=== PATIENT | male | born 1975 | race Caucasian/White ===

== ENCOUNTER 2019-01-25 15:43 | Inpatient (IN) | payer OTHER ==
[2019-01-25 19:32] VITALS: BMI 19.9
--- NOTE | 2019-01-25 21:06 | HP ---
COWS - Scale Resting Pulse: 0= [place] 80 or Below Sweatin=Flushed/Facial Moisture Restless Observation: 1= Difficult to Sit Still Pupil Size: 0= Normal to Room Light Bone or Joint Aches: 0= None Runny Nose/ Eye Tearin= Runny Nose/Eyes GI Upset > 30mins: 3= Vomiting/Diarrhea Tremor Observation: 0= None Yawning Observation: 1= 1-2x During Session Anxiety or Irritability: 2=Irritable/Anxious Goose Flesh Skin: 0=Smooth Skin COWS Score: 11 CIWA Score Nausea/Vomitin Muscle Tremors: 1-None Visible, but [place] Anxiety: 3 Agitation: 3 Paroxysmal Sweats: 3 Orientation: 0-Oriented Tacttile Disturbances: 0-None Auditory Disturbances: 0-None Visual Disturbances: 2-Mild Sensitivity Headache: 0-None Present CIWA-Ar Total Score: 15 - Admission Criteria OASAS Guidelines: Admission for Medically Managed Detox: Requires at least one of the followin. CIWA greater than 12 2. Seizures within the past 24 hours 3. Delirium tremens within the past 24 hours 4. Hallucinations within the past 24 hours 5. Acute intervention needed for co occurring medical disorder 6. Acute intervention needed for co occurring psychiatric disorder 7. Severe withdrawal that cannot be handled at a lower level of care (continued vomiting, continued diarrhea, abnormal vital signs) requiring intravenous medication and/or fluids 8. Patient presents the following: CIWA greater than 12 Admission Criteria Met: Admission criteria met Admission ROS [facility] Chief Complaint: C/O WITHDRAWAL SX'S. Allergies/Adverse Reactions: Allergies Allergy/AdvReac Type Severity Reaction Status Date / Time No Known Allergies Allergy Verified 01/25/19 19:25 History of Present Illness: 43 Y.O. FEMALE WITH HX/O POLYSUBSTANCE ABUSE HERE FOR DETOX FROM OPIATES AND ALCOHOL. CLIENT IS SELF REFERRED HE IS KNOWN TO THIS PROGRAM. LAST ADMIT 2015. REPORTS WAS CLEAN FOR 2 YEARS RELAPSING 5 MONTHS AGO. PRESENTS WITH C/O WITHDRAWAL SX'S. COWS 11/CIWA 15. REPORTS LAST USED ALCOHOL AND HEROIN THIS MORNING. DENIES HX/O DRUG OVERDOSE, SEIZURES, SI/HI/AVH. DOMICILED, UNEMPLOYED, DENIES LEGALS Exam Limitations: Physical Impairment (LEGALLY BLIND) - Ebola screening Have you traveled outside of the country in the last 21 days: No Have you had contact with anyone from an Ebola affected area: No Do you have a fever: No - Review of Systems Constitutional: Chills, Loss of Appetite, Malaise, Night Sweats, Changes in sleep EENT: reports: Other (LEGALLY BLIND) Respiratory: reports: No Symptoms reported Cardiac: reports: No Symptoms Reported GI: reports: Diarrhea, Nausea, Poor Appetite, Poor Fluid Intake, Vomiting : reports: No Symptoms Reported Musculoskeletal: reports: Back Pain Integumentary: reports: Flushing Neuro: reports: No Symptoms reported Endocrine: reports: No Symptoms Reported Hematology: reports: No Symptoms Reported Psychiatric: reports: Orientated x3, Agitated (IRRITABLE), Depressed Other Systems: Reviewed and Negative Patient History - Patient Medical History Hx Anemia: No Hx Asthma: No Hx Chronic Obstructive Pulmonary Disease (COPD): No Hx Cancer: No Hx Cardiac Disorders: No Hx Congestive Heart Failure: No Hx Hypertension: No Hx Hypercholesterolemia: No Hx Pacemaker: No Hx Seizures: No Hx Dementia: No Hx Diabetes: No Hx Gastrointestinal Disorders: No Hx Liver Disease: No Hx Genitourinary Disorders: No Hx Sexually Transmitted Disorders: No Hx Renal Disease (ESRD): No Hx Thyroid Disease: No Hx Human Immunodeficiency Virus (HIV): No Hx Hepatitis C: Yes (NO TXMENT) Hx Depression: No Hx Suicide Attempt: No Hx Bipolar Disorder: No Hx Schizophrenia: No - Patient Surgical History Past Surgical History: Yes Hx Neurologic Surgery: No Hx Cataract Extraction: No Hx Cardiac Surgery: No Hx Lung Surgery: No Hx Breast Surgery: No Hx Breast Biopsy: No Hx Abdominal Surgery: No Hx Appendectomy: No Hx Cholecystectomy: No Hx Genitourinary Surgery: No Hx Section: No Hx Orthopedic Surgery: No Other Surgical History: Umbillical hernia repair 07/12 Anesthesia Reaction: No - PPD History Previous Implant?: Yes Documented Results: Negative w/proof Implanted On Prior R Admission?: Yes Date: 04/13/16 Results: negative PPD to be Administered?: Yes - Smoking Cessation Smoking history: Current every day smoker Have you smoked in the past 12 months: Yes Aproximately how many cigarettes per day: 10 Cigars Per Day: 0 Hx Chewing Tobacco Use: No Initiated information on smoking cessation: Yes 'Breaking Loose' booklet given: 01/25/19 - Substance & Tx. History Hx Alcohol Use: Yes Hx Substance Use: Yes Substance Use Type: Alcohol, Cocaine, Heroin, Opiates (STREET MTD) Hx Substance Use Treatment: Yes ([facility]) - Substances abused Heroin Substance route: Injection Frequency: Daily Amount used: 5-6 bags/daily Age of first use: 22 Date of last use: 01/25/19 Cocaine Substance route: Injection Frequency: Daily Amount used: 5-6 bags/daily Age of first use: 29 Date of last use: 01/25/19 Alcohol Substance route: Oral Frequency: Daily Amount used: 6 beers, 1/2 pint Age of first use: 29 Date of last use: 01/25/19 Other Other (specify): Percocet Substance route: Oral Frequency: Daily Amount used: 5-6 pills (10 - 325mg) Age of first use: 29 Date of last use: 01/25/19 Family Disease History - Family Disease History Family Disease History: Diabetes: Mother, Heart Disease: Father (htn), Other: Grandparent (schizophrenia), Sister (lupus) Admission Physical Exam [facility] - Vital Signs Vital Signs: Vital Signs - 24 hr 01/25/19 19:25 Temperature 97.9 F Pulse Rate 64 Respiratory 20 Rate Blood Pressure 114/73 - Physical General Appearance: Yes: Mild Distress, Irritable HEENTM: Yes: EOMI, Normocephalic, Normal Voice, Pharynx Normal, Other (POOR DENTTION) Respiratory: Yes: Chest Non-Tender, Lungs Clear, Normal Breath Sounds, No Respiratory Distress, No Accessory Muscle Use Neck: Yes: No masses,lesions,Nodules, Supple, Trachea in good position Breast: Yes: Breast Exam Deferred Cardiology: Yes: Regular Rhythm, Regular Rate, S1, S2 Abdominal: Yes: Normal Bowel Sounds, Non Tender, Flat, Soft Genitourinary: Yes: Within Normal Limits Back: Yes: Normal Inspection Musculoskeletal: Yes: full range of Motion, Gait Steady Extremities: Yes: Normal Capillary Refill, Normal Range of Motion, Non-Tender Neurological: Yes: Fully Oriented, Alert, Motor Strength 5/5, Depressed Affect Integumentary: Yes: Dry, Warm, Track [place] Lymphatic: Yes: Within Normal Limits - Diagnostic (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 (2) Cocaine abuse, uncomplicated Current Visit: Yes Status: Acute (3) At risk for dehydration due to poor fluid intake Current Visit: Yes Status: Acute (4) Nicotine dependence Current Visit: Yes Status: Chronic Qualifiers: Nicotine product type: cigarettes Substance use status: uncomplicated Qualified Code(s): F17.210 - Nicotine dependence, cigarettes, uncomplicated (5) Substance-induced sleep disorder Current Visit: Yes Status: Suspected (6) Alcohol dependence with uncomplicated withdrawal Current Visit: Yes Status: Acute (7) Hepatitis C antibody test positive Current Visit: Yes Status: Chronic (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 (9) IVDU (intravenous drug user) Current Visit: Yes Status: Acute Cleared for Admission S - Detox or Rehab [facility] Level of Care: Medically Managed Detox Regimen/Protocol: Methadone/Librium Claeared for Rehab Admission: No Breathalyzer - Breathalyzer Breathalyzer: 0 Urine Drug Screen - Test Device Lot number: [id number] Expiration date: 10/06/20 - Control Is test valid?: Yes - Results Drug screen NEGATIVE: No Urine drug screen results: ANA-Cocaine, FEN-Fentanyl, MOP-Opiates, MTD-Methadone , BZO-Benzodiazepines Inpatient Rehab Admission - Rehab Decision to Admit Inpatient rehab admission?: No
[2019-01-25] MEDS ORDERED: BISMUTH SUBSALICYLATE 524 MG/30 ML UD PO PRN (21:13)
[2019-01-25] MEDS ORDERED: P-EPHED 60MG/TRIPROLIDI 2.5MG TABLET PO PRN (21:13)
[2019-01-25] MEDS ORDERED: IBUPROFEN 400 MG TABLET (FP) PO PRN (21:13)
[2019-01-25] MEDS ORDERED: MENTHOL/PHENOL 1 EACH UD MM PRN (21:13)
[2019-01-25] MEDS ORDERED: cloNIDine HCL 0.1 MG TABLET PO PRN (21:13)
[2019-01-25] MEDS ORDERED: NICOTINE POLACRILEX 2 MG GUM BUC PRN (21:13)
[2019-01-25] MEDS ORDERED: MAGNESIUM HYDROX 2400MG/30ML ORAL SUSPENSION 30 ML CUP PO PRN (21:13)
[2019-01-25] MEDS ORDERED: hydrOXYzine PAMOATE 25 MG CAPSULE (FP) PO PRN (21:13)
[2019-01-25] MEDS ORDERED: MAG HYDROX/AL HYDROX/SIMETH 30 ML UNIT-DOSE CUP PO PRN (21:13)
[2019-01-25] MEDS ORDERED: ACETAMINOPHEN 325 MG TABLET (FP) PO PRN ×2 (21:13)
[2019-01-25] MEDS ORDERED: DICYCLOMINE HCL 10 MG CAPSULE PO PRN (21:13)
[2019-01-25] MEDS ORDERED: MAGNESIUM CITRATE 300 ML BOTTLE PO PRN (21:13)
[2019-01-25] MEDS ORDERED: guaiFENesin 200 MG/10 ML 10 ML UNIT-DOSE CUPS PO PRN (21:13)
[2019-01-25] MEDS ORDERED: NALOXONE HCL 0.4 MG/ML VIAL IVPUSH PRN (21:13)
[2019-01-25] MEDS ORDERED: ONDANSETRON *ODT* 4 MG TABLET SL PRN (21:13)
[2019-01-25] MEDS: THIAMINE HCL 100 MG TABLET (FP) PO SCH (22:33)
[2019-01-25] MEDS: chlordiazePOXIDE HCL 25 MG CAPSULE PO SCH (22:33)
[2019-01-25] MEDS ORDERED: METHADONE HCL 10 MG TABLET (FOR DETOX USE ONLY) PO ONE (23:00)
[2019-01-26] MEDS: chlordiazePOXIDE HCL 25 MG CAPSULE PO SCH ×4 (05:16→22:26)
[2019-01-26 09:46] LABS: HEMATOCRIT 40.6 % (35.4-49); HEMOGLOBIN 13.9 GM/dL (11.7-16.9); MCH 32.3 pg (25.7-33.7); MCHC 34.3 g/dl (32.0-35.9); MEAN CELL VOLUME 94.2 fl (80-96); MEAN PLT VOLUME 8.3 fl (7.5-11.1); PLATELET COUNT 181 K/MM3 (134-434); RBC 4.31 M/mm3 (4.00-5.60); RDW 12.6 % (11.9-15.9); WHITE BLOOD COUNT 5.9 K/mm3 (4.0-10.0)
[2019-01-26 09:58] LABS: ALBUMIN 3.2 g/dl (3.4-5.0); BILIRUBIN,TOTAL 0.3 mg/dL (0.2-1); BLOOD UREA NITROGEN 13.7 mg/dL (7-18); CALCIUM 8.4 mg/dL (8.5-10.1); CREATININE 0.9 mg/dL (0.55-1.3); POTASSIUM 3.8 mmol/L (3.5-5.1); TOT PROT 6.4 g/dl (6.4-8.2)
[2019-01-26] MEDS ORDERED: METHADONE HCL 10 MG TABLET (FOR DETOX USE ONLY) PO ONE (10:00)
[2019-01-26] MEDS: PRENATAL VITAMINS W/ FOLIC ACID TABLET (FP) PO SCH (10:21)
[2019-01-26] MEDS: NICOTINE 14 MG/24 HOURS TOPICAL PATCH TD SCH (10:23)
--- NOTE | 2019-01-26 12:00 | PN ---
S CIWA - CIWA Score Nausea/Vomitin Muscle Tremors: 2 Anxiety: 2 Agitation: 2 Paroxysmal Sweats: 1-Minimal Palms Moist Orientation: 0-Oriented Tacttile Disturbances: 1-Very Mild Itch/Numbness Auditory Disturbances: 1-Very Mild Visual Disturbances: 0-None Headache: 2-Mild CIWA-Ar Total Score: 13 BHS COWS - Scale Resting Pulse: 0= [place] 80 or Below Sweatin= Chills/Flushing Restless Observation: 1= Difficult to Sit Still Pupil Size: 1= Pupils >than Normal Bone or Joint Aches: 2= Severe Diffuse Aches Runny Nose/ Eye Tearin= Nasal Congestion GI Upset > 30mins: 2= Nausea/Diarrhea Tremor Observation of Outstretched Hands: 2= Slight Tremor Visible Yawning Observation: 1= 1-2x During Session Anxiety or Irritability: 2=Irritable/Anxious Goose Flesh Skin: 0=Smooth Skin COWS Score: 13 BHS Progress Note (SOAP) Subjective: alert,irritable,anxious,interrupted sleep,pain in the body and back tremor Objective: 01/26/19 11:58 Vital Signs Temperature 97.8 F 01/26/19 09:24 Pulse Rate 71 01/26/19 09:24 Respiratory Rate 18 01/26/19 09:24 Blood Pressure 108/65 01/26/19 09:24 O2 Sat by Pulse Oximetry (%) Laboratory Last Values WBC 5.9 K/mm3 (4.0-10.0) 01/26/19 07:30 RBC 4.31 M/mm3 (4.00-5.60) 01/26/19 07:30 Hgb 13.9 GM/dL (11.7-16.9) 01/26/19 07:30 Hct 40.6 % (35.4-49) 01/26/19 07:30 MCV 94.2 fl (80-96) 01/26/19 07:30 MCH 32.3 pg (25.7-33.7) 01/26/19 07:30 MCHC 34.3 g/dl (32.0-35.9) 01/26/19 07:30 RDW 12.6 % (11.9-15.9) 01/26/19 07:30 Plt Count 181 K/MM3 (134-434) D 01/26/19 07:30 MPV 8.3 fl (7.5-11.1) 01/26/19 07:30 Sodium 142 mmol/L (136-145) 01/26/19 07:30 Potassium 3.8 mmol/L (3.5-5.1) 01/26/19 07:30 Chloride 108 mmol/L (98-107) H 01/26/19 07:30 Carbon Dioxide 29 mmol/L (21-32) 01/26/19 07:30 Anion Gap 5 MMOL/L (8-16) L 01/26/19 07:30 BUN 13.7 mg/dL (7-18) 01/26/19 07:30 Creatinine 0.9 mg/dL (0.55-1.3) 01/26/19 07:30 Est GFR (CKD-EPI)AfAm 119.97 01/26/19 07:30 Est GFR (CKD-EPI)NonAf 103.51 01/26/19 07:30 Random Glucose 81 mg/dL (74-106) 01/26/19 07:30 Calcium 8.4 mg/dL (8.5-10.1) L 01/26/19 07:30 Total Bilirubin 0.3 mg/dL (0.2-1) 01/26/19 07:30 AST 15 U/L (15-37) 01/26/19 07:30 ALT 13 U/L (13-61) 01/26/19 07:30 Alkaline Phosphatase 65 U/L (45-117) 01/26/19 07:30 Total Protein 6.4 g/dl (6.4-8.2) 01/26/19 07:30 Albumin 3.2 g/dl (3.4-5.0) L 01/26/19 07:30 RPR Titer Nonreactive (NONREACTIVE) 01/26/19 07:30 Assessment: 01/26/19 11:59 withdrawal symptom Plan: continue detox,medication adjust
--- NOTE | 2019-01-26 14:44 | CONSULT ---
[facility] Psychiatric Consult - Data Date of interview: 01/26/19 Admission source: [facility] Identifying data: Patient is a 43 year old single male, without children, unemployed, domiciled, and is supported by [facility]. This is one of multiple admissions for patient. Patient admitted to for alcohol, cocaine and opiate dependence. Substance Abuse History: - Smoking Cessation. Smoking history: Current every day smoker. Have you smoked in the past 12 months: Yes. Aproximately how many cigarettes per day: 10. Cigars Per Day: 0. Hx Chewing Tobacco Use: No. Initiated information on smoking cessation: Yes. 'Breaking Loose' booklet given : 01/25/19. - Substance & Tx. History. Hx Alcohol Use: Yes. Hx Substance Use : Yes. Substance Use Type: Alcohol, Cocaine, Heroin, Opiates (STREET MTD). Hx Substance Use Treatment: Yes ([facility]). - Substances abused. Heroin. Substance route: Injection. Frequency: Daily. Amount used: 5-6 bags/daily. Age of first use: 22. Date of last use: 01/25/19. Cocaine. Substance route : Injection. Frequency: Daily. Amount used: 5-6 bags/daily. Age of first use : 29. Date of last use: 01/25/19. Alcohol. Substance route: Oral. Frequency: Daily. Amount used: 6 beers, 1/2 pint. Age of first use: 29. Date of last use: 01/25/19. Other. Other (specify): Percocet. Substance route: Oral. Frequency: Daily. Amount used: 5-6 pills (10 - 325mg). Age of first use : 29. Date of last use: 01/25/19 Medical History: Umbillical hernia repair 07/12, Hep C, Psychiatric History: Patient denies h/o psychiatric hospitalizations, outpatient care, and suicide attempt. At present patient reports difficulty sleeping and is requesting seroquel for insomnia. Physical/Sexual Abuse/Trauma History: denies. Mental Status Exam - Mental Status Exam Alert and Oriented to: Time, Place, Person Cognitive Function: Good Patient Appearance: Well Groomed Mood: Euthymic Affect: Appropriate Patient Behavior: Cooperative Speech Pattern: Appropriate Voice Loudness: Moderately Soft/Quiet Thought Process: Goal Oriented Thought Disorder: Not Present Hallucinations: Denies Suicidal Ideation: Denies Homicidal Ideation: Denies Insight/Judgement: Poor Sleep: Poorly Appetite: Fair Muscle strength/Tone: Normal Gait/Station: Normal Psychiatric Findings - Problem List ([place] 1, 2,3) (1) Alcohol dependence with uncomplicated withdrawal Current Visit: Yes Status: Acute (2) Cocaine abuse, uncomplicated Current Visit: Yes Status: Acute (3) Nicotine dependence Current Visit: Yes Status: Chronic Qualifiers: Nicotine product type: cigarettes Substance use status: uncomplicated Qualified Code(s): F17.210 - Nicotine dependence, cigarettes, uncomplicated (4) Substance-induced sleep disorder Current Visit: Yes Status: Acute - Initial Treatment Plan Initial Treatment Plan: Psychoeducation provided. Detoxification in progress. Will order Seroquel 50mg HS. Benefits and side effects discussed. Verbal consent given.
[2019-01-26 15:19] LABS: URINE APPEARANCE TURBID; URINE BILIRUBIN NEGATIVE (NEGATIVE); URINE COLOR YELLOW; URINE GLUCOSE (UA) NEGATIVE (NEGATIVE); URINE KETONE NEGATIVE (NEGATIVE); URINE LEUK ESTERASE NEGATIVE (NEGATIVE); URINE NITRITE NEGATIVE (NEGATIVE); URINE PROTEIN NEGATIVE (NEGATIVE)
[2019-01-26] MEDS ORDERED: QUEtiapine FUMARATE 50 MG TABLET PO SCH (22:00)
[2019-01-26] MEDS: THIAMINE HCL 100 MG TABLET (FP) PO SCH (22:26)
[2019-01-26] MEDS: MELATONIN 5 MG TABLETS PO PRN (22:28)
[2019-01-26] MEDS: METHOCARBAMOL 500 MG TABLET PO PRN (22:28)
[2019-01-27] MEDS: chlordiazePOXIDE HCL 25 MG CAPSULE PO SCH ×3 (05:20→17:10)
[2019-01-27] MEDS ORDERED: METHADONE HCL 10 MG TABLET (FOR DETOX USE ONLY) PO ONE (10:00)
[2019-01-27] MEDS: PRENATAL VITAMINS W/ FOLIC ACID TABLET (FP) PO SCH (10:08)
[2019-01-27] MEDS: METHOCARBAMOL 500 MG TABLET PO PRN ×2 (10:09→22:17)
[2019-01-27] MEDS: NICOTINE 14 MG/24 HOURS TOPICAL PATCH TD SCH (10:09)
--- NOTE | 2019-01-27 11:27 | PN ---
LINDA Progress Note Note: Psychiatry Attending's note (follow-up) : Approached by patient. Complaint : insomnia. " I need more seroquel ". Chart reviewed. Records revisited. 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 Intervention : . Sleep hygiene discussed in this session. . Seroquel 100 mg po hs. Ordered. . Side effects/benefits reviewed with patient. Mr Reed expresses his agreement with this plan of care. Verbal consent given to MD. Will follow response.
[2019-01-27] MEDS ORDERED: ALBUTEROL SO4 8 GM HFA INHALER IH PRN (12:47)
--- NOTE | 2019-01-27 12:47 | PN ---
S CIWA - CIWA Score Nausea/Vomitin Muscle Tremors: 2 Anxiety: 2 Agitation: 2 Paroxysmal Sweats: 1-Minimal Palms Moist Orientation: 0-Oriented Tacttile Disturbances: 1-Very Mild Itch/Numbness Auditory Disturbances: 0-None Visual Disturbances: 0-None Headache: 2-Mild CIWA-Ar Total Score: 12 BHS COWS - Scale Resting Pulse: 1= [place] 81-100 Sweatin= Chills/Flushing Restless Observation: 1= Difficult to Sit Still Pupil Size: 1= Pupils >than Normal Bone or Joint Aches: 2= Severe Diffuse Aches Runny Nose/ Eye Tearin= Nasal Congestion GI Upset > 30mins: 2= Nausea/Diarrhea Tremor Observation of Outstretched Hands: 2= Slight Tremor Visible Yawning Observation: 1= 1-2x During Session Anxiety or Irritability: 2=Irritable/Anxious Goose Flesh Skin: 0=Smooth Skin COWS Score: 14 S Progress Note (SOAP) Subjective: alert,irritable,anxious,interrupted sleep,tremor,pain in the body and back, history of copd Objective: 01/27/19 12:46 Vital Signs Temperature 97.4 F L 01/27/19 09:28 Pulse Rate 95 H 01/27/19 09:28 Respiratory Rate 20 01/27/19 09:28 Blood Pressure 130/81 01/27/19 09:28 O2 Sat by Pulse Oximetry (%) Laboratory Last Values WBC 5.9 K/mm3 (4.0-10.0) 01/26/19 07:30 RBC 4.31 M/mm3 (4.00-5.60) 01/26/19 07:30 Hgb 13.9 GM/dL (11.7-16.9) 01/26/19 07:30 Hct 40.6 % (35.4-49) 01/26/19 07:30 MCV 94.2 fl (80-96) 01/26/19 07:30 MCH 32.3 pg (25.7-33.7) 01/26/19 07:30 MCHC 34.3 g/dl (32.0-35.9) 01/26/19 07:30 RDW 12.6 % (11.9-15.9) 01/26/19 07:30 Plt Count 181 K/MM3 (134-434) D 01/26/19 07:30 MPV 8.3 fl (7.5-11.1) 01/26/19 07:30 Sodium 142 mmol/L (136-145) 01/26/19 07:30 Potassium 3.8 mmol/L (3.5-5.1) 01/26/19 07:30 Chloride 108 mmol/L (98-107) H 01/26/19 07:30 Carbon Dioxide 29 mmol/L (21-32) 01/26/19 07:30 Anion Gap 5 MMOL/L (8-16) L 01/26/19 07:30 BUN 13.7 mg/dL (7-18) 01/26/19 07:30 Creatinine 0.9 mg/dL (0.55-1.3) 01/26/19 07:30 Est GFR (CKD-EPI)AfAm 119.97 01/26/19 07:30 Est GFR (CKD-EPI)NonAf 103.51 01/26/19 07:30 Random Glucose 81 mg/dL (74-106) 01/26/19 07:30 Calcium 8.4 mg/dL (8.5-10.1) L 01/26/19 07:30 Total Bilirubin 0.3 mg/dL (0.2-1) 01/26/19 07:30 AST 15 U/L (15-37) 01/26/19 07:30 ALT 13 U/L (13-61) 01/26/19 07:30 Alkaline Phosphatase 65 U/L (45-117) 01/26/19 07:30 Total Protein 6.4 g/dl (6.4-8.2) 01/26/19 07:30 Albumin 3.2 g/dl (3.4-5.0) L 01/26/19 07:30 Urine Color Yellow 01/25/19 12:00 Urine Appearance Turbid 01/25/19 12:00 Urine pH 7.0 (5.0-8.0) D 01/25/19 12:00 Ur Specific [place] 1.025 (1.010-1.035) 01/25/19 12:00 Urine Protein Negative (NEGATIVE) 01/25/19 12:00 Urine Glucose (UA) Negative (NEGATIVE) 01/25/19 12:00 Urine Ketones Negative (NEGATIVE) 01/25/19 12:00 Urine Blood Negative (NEGATIVE) 01/25/19 12:00 Urine Nitrite Negative (NEGATIVE) 01/25/19 12:00 Urine Bilirubin Negative (NEGATIVE) 01/25/19 12:00 Urine Urobilinogen 1.0 mg/dL (0.2-1.0) 01/25/19 12:00 Ur Leukocyte Esterase Negative (NEGATIVE) 01/25/19 12:00 RPR Titer Nonreactive (NONREACTIVE) 01/26/19 07:30 Assessment: 01/27/19 12:46 withdrawal symptom Plan: continue detox,albuterol inhaler,chest x ray today
[2019-01-27] MEDS: chlordiazePOXIDE HCL 25 MG CAPSULE PO PRN ×2 (13:21→19:45)
[2019-01-27] MEDS ORDERED: QUEtiapine FUMARATE 100 MG TABLET (FP) PO SCH (22:00)
[2019-01-27] MEDS: chlordiazePOXIDE HCL 10 MG CAPSULE PO SCH (22:16)
[2019-01-27] MEDS: MELATONIN 5 MG TABLETS PO PRN (22:17)
[2019-01-27] MEDS: THIAMINE HCL 100 MG TABLET (FP) PO SCH (22:17)
[2019-01-28] MEDS: chlordiazePOXIDE HCL 10 MG CAPSULE PO PRN ×2 (02:21→07:55)
[2019-01-28] MEDS: chlordiazePOXIDE HCL 10 MG CAPSULE PO SCH ×3 (05:47→17:24)
[2019-01-28] MEDS: METHOCARBAMOL 500 MG TABLET PO PRN (07:55)
[2019-01-28] MEDS ORDERED: METHADONE HCL 10 MG TABLET (FOR DETOX USE ONLY) ONE (09:15)
[2019-01-28] MEDS ORDERED: METHADONE HCL 5 MG TABLET (FOR DETOX USE ONLY) ONE (09:15)
--- NOTE | 2019-01-28 09:47 | PN ---
S CIWA - CIWA Score Nausea/Vomitin-No Nausea/No Vomiting Muscle Tremors: 2 Anxiety: 2 Agitation: 2 Paroxysmal Sweats: 3 Orientation: 0-Oriented Tacttile Disturbances: 0-None Auditory Disturbances: 0-None Visual Disturbances: 0-None Headache: 2-Mild CIWA-Ar Total Score: 11 S COWS - Scale Resting Pulse: 0= [place] 80 or Below Sweatin= Beads of Sweat on Face Restless Observation: 1= Difficult to Sit Still Pupil Size: 0= Normal to Room Light Bone or Joint Aches: 1= Mild Discomfort Runny Nose/ Eye Tearin= None GI Upset > 30mins: 0= None Tremor Observation of Outstretched Hands: 1= Tremor [place] Hat, Not Seen Yawning Observation: 1= 1-2x During Session Anxiety or Irritability: 2=Irritable/Anxious Goose Flesh Skin: 0=Smooth Skin COWS Score: 9 S Progress Note (SOAP) Subjective: c/o interrupted sleep, sweats, and headache. Objective: 01/28/19 09:45 Vital Signs 01/28/19 01/28/19 01/28/19 03:30 06:21 09:43 Temperature 97.8 F 97.2 F L Pulse Rate 69 89 Respiratory 18 18 18 Rate Blood Pressure 114/69 123/83 Lab Results WBC 5.9 K/mm3 (4.0-10.0) 01/26/19 07:30 RBC 4.31 M/mm3 (4.00-5.60) 01/26/19 07:30 Hgb 13.9 GM/dL (11.7-16.9) 01/26/19 07:30 Hct 40.6 % (35.4-49) 01/26/19 07:30 MCV 94.2 fl (80-96) 01/26/19 07:30 MCHC 34.3 g/dl (32.0-35.9) 01/26/19 07:30 RDW 12.6 % (11.9-15.9) 01/26/19 07:30 Plt Count 181 K/MM3 (134-434) D 01/26/19 07:30 Sodium 142 mmol/L (136-145) 01/26/19 07:30 Potassium 3.8 mmol/L (3.5-5.1) 01/26/19 07:30 Chloride 108 mmol/L (98-107) H 01/26/19 07:30 Carbon Dioxide 29 mmol/L (21-32) 01/26/19 07:30 Anion Gap 5 MMOL/L (8-16) L 01/26/19 07:30 BUN 13.7 mg/dL (7-18) 01/26/19 07:30 Creatinine 0.9 mg/dL (0.55-1.3) 01/26/19 07:30 Random Glucose 81 mg/dL (74-106) 01/26/19 07:30 Calcium 8.4 mg/dL (8.5-10.1) L 01/26/19 07:30 Labs noted. Assessment: 01/28/19 09:45 AOX3, in no acute distress. Full rom, ambulates in the unit. withdrawal signs Plan: continue detox. increase fluids.
[2019-01-28] MEDS ORDERED: METHADONE HCL 10 MG TABLET (FOR DETOX USE ONLY) PO ONE (10:00)
[2019-01-28] MEDS ORDERED: METHADONE (DETOX) 10 MG, METHADONE (DETOX) 5 MG PO ONE (10:00)
[2019-01-28] MEDS: PRENATAL VITAMINS W/ FOLIC ACID TABLET (FP) PO SCH (10:17)
[2019-01-28] MEDS: NICOTINE 14 MG/24 HOURS TOPICAL PATCH TD SCH (10:18)
--- NOTE | 2019-01-28 14:29 | HP ---
LINDA ALLEN Rehab Assess/Revision - Admission History Admitted to Rehab from: [facility] [place] Date of Admission to Rehab: 01/28/2019 - Vital signs Vital Signs: Vital Signs Period Temp Pulse Resp BP Sys/Amaro Pulse Ox Last 24 Hr 97.2 F-99 F 69-104 18-18 110-134/69-85 Lab Results WBC 5.9 K/mm3 (4.0-10.0) 01/26/19 07:30 RBC 4.31 M/mm3 (4.00-5.60) 01/26/19 07:30 Hgb 13.9 GM/dL (11.7-16.9) 01/26/19 07:30 Hct 40.6 % (35.4-49) 01/26/19 07:30 MCV 94.2 fl (80-96) 01/26/19 07:30 MCHC 34.3 g/dl (32.0-35.9) 01/26/19 07:30 RDW 12.6 % (11.9-15.9) 01/26/19 07:30 Plt Count 181 K/MM3 (134-434) D 01/26/19 07:30 Sodium 142 mmol/L (136-145) 01/26/19 07:30 Potassium 3.8 mmol/L (3.5-5.1) 01/26/19 07:30 Chloride 108 mmol/L (98-107) H 01/26/19 07:30 Carbon Dioxide 29 mmol/L (21-32) 01/26/19 07:30 Anion Gap 5 MMOL/L (8-16) L 01/26/19 07:30 BUN 13.7 mg/dL (7-18) 01/26/19 07:30 Creatinine 0.9 mg/dL (0.55-1.3) 01/26/19 07:30 Random Glucose 81 mg/dL (74-106) 01/26/19 07:30 Calcium 8.4 mg/dL (8.5-10.1) L 01/26/19 07:30 - Findings Detox History & Physical reviewed: Yes Concur with findings: Yes Inpatient Rehab Admission - Rehab Decision to Admit Inpatient rehab admission?: Yes - Initial Determination Are CD services needed?: Yes Free of communicable disease: Yes Not in need of hospitalization: Yes - Rehab Admission Criteria Previous failed treatment: Yes Poor recovery environment: Yes Comorbidities: Yes Lacks judgement: No Patient is meeting Inpatient Rehab admission criteria:: Yes
--- NOTE | 2019-01-28 14:59 | DS ---
[facility] Detox Discharge Summary Admission Date: 01/25/19 Discharge Date: 01/28/19 - History Present History: Alcohol Dependence, Cocaine Dependence, Opioid Dependence, Sedative Dependence Additional Comments: Pt is discharged to [facility]hab for continued management. Pt is alert and oriented x3 and in no respiratory distress. Pertinent Past History: H/O alcohol, heroine, and cocaine use disorder. - Physical Exam Results Vital Signs: Vital Signs Temperature 99 F 01/28/19 13:39 Pulse Rate 104 H 01/28/19 13:39 Respiratory Rate 18 01/28/19 13:39 Blood Pressure 110/77 01/28/19 13:39 O2 Sat by Pulse Oximetry (%) Lab Results WBC 5.9 K/mm3 (4.0-10.0) 01/26/19 07:30 RBC 4.31 M/mm3 (4.00-5.60) 01/26/19 07:30 Hgb 13.9 GM/dL (11.7-16.9) 01/26/19 07:30 Hct 40.6 % (35.4-49) 01/26/19 07:30 MCV 94.2 fl (80-96) 01/26/19 07:30 MCHC 34.3 g/dl (32.0-35.9) 01/26/19 07:30 RDW 12.6 % (11.9-15.9) 01/26/19 07:30 Plt Count 181 K/MM3 (134-434) D 01/26/19 07:30 Sodium 142 mmol/L (136-145) 01/26/19 07:30 Potassium 3.8 mmol/L (3.5-5.1) 01/26/19 07:30 Chloride 108 mmol/L (98-107) H 01/26/19 07:30 Carbon Dioxide 29 mmol/L (21-32) 01/26/19 07:30 Anion Gap 5 MMOL/L (8-16) L 01/26/19 07:30 BUN 13.7 mg/dL (7-18) 01/26/19 07:30 Creatinine 0.9 mg/dL (0.55-1.3) 01/26/19 07:30 Random Glucose 81 mg/dL (74-106) 01/26/19 07:30 Calcium 8.4 mg/dL (8.5-10.1) L 01/26/19 07:30 Labs noted. Pertinent Admission Physical Exam Findings: withdrawal symptoms. 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
[2019-01-28 17:40] VITALS: BP 110/73; PULSE 105; TEMP 98.3
[2019-01-28] MEDS ORDERED: chlordiazePOXIDE HCL 10 MG CAPSULE PO SCH (23:00)
[2019-01-29] MEDS ORDERED: METHADONE HCL 5 MG TABLET (FOR DETOX USE ONLY) PO ONE (06:00)
[2019-01-29] MEDS ORDERED: METHADONE HCL 10 MG TABLET (FOR DETOX USE ONLY) PO ONE (10:00)
[2019-01-30] MEDS ORDERED: METHADONE HCL 5 MG TABLET (FOR DETOX USE ONLY) PO ONE (06:00)
== END 2019-01-28 17:45 | disposition other institution (70) | DRG 773 ==
LOC: YASAS 15:43 → Y3N 21:49
PROVIDERS: ADMIT Surgery; ATTEND Surgery
PROC: HZ2ZZZZ Detoxification Services for Substance Abuse Treatment (ICD-10-PCS; principal; 2019-01-25)
DX: F10.230 Alcohol dependence with withdrawal, uncomplicated (principal); F11.23 Opioid dependence with withdrawal; F13.230 Sedative, hypnotic or anxiolytic dependence with withdrawal, uncomplicated; F14.20 Cocaine dependence, uncomplicated; F17.210 Nicotine dependence, cigarettes, uncomplicated; F19.282 Other psychoactive substance dependence with psychoactive substance-induced sleep disorder; B18.2 Chronic viral hepatitis C; H54.8 Legal blindness, as defined in USA; E70.30 Albinism, unspecified
CPT/HCPCS: 36415; 71046-TC-FY; 80053; 81003; 85027; 86593

== ENCOUNTER 2019-01-28 17:42 | Inpatient (IN) | payer OTHER ==
--- NOTE | 2019-01-28 18:13 | HP ---
LINDA ALLEN Rehab Assess/Revision - Admission History Admitted to Rehab from: [facility] [place] Date of Admission to Rehab: 01/28/19 - Findings Detox History & Physical reviewed: Yes Concur with findings: Yes Comments/Additional Findings: for rehab as protocol Inpatient Rehab Admission - Rehab Decision to Admit Inpatient rehab admission?: Yes - Initial Determination Are CD services needed?: Yes Free of communicable disease: Yes Not in need of hospitalization: Yes - Rehab Admission Criteria Previous failed treatment: Yes Poor recovery environment: Yes Comorbidities: Yes Lacks judgement: No Patient is meeting Inpatient Rehab admission criteria:: Yes
[2019-01-28] MEDS ORDERED: MAG HYDROX/AL HYDROX/SIMETH 30 ML UNIT-DOSE CUP PO PRN (18:14)
[2019-01-28] MEDS ORDERED: MENTHOL/PHENOL 1 EACH UD MM PRN (18:14)
[2019-01-28] MEDS ORDERED: LOPERAMIDE HCL 2 MG CAPSULE PO PRN (18:14)
[2019-01-28] MEDS ORDERED: P-EPHED 60MG/TRIPROLIDI 2.5MG TABLET PO PRN (18:14)
[2019-01-28] MEDS ORDERED: guaiFENesin 200 MG/10 ML 10 ML UNIT-DOSE CUPS PO PRN (18:14)
[2019-01-28] MEDS ORDERED: NICOTINE POLACRILEX 2 MG GUM BUC PRN (18:14)
[2019-01-28] MEDS ORDERED: MAGNESIUM CITRATE 300 ML BOTTLE PO PRN (18:14)
[2019-01-28] MEDS ORDERED: ACETAMINOPHEN 325 MG TABLET (FP) PO PRN (18:14)
[2019-01-28] MEDS ORDERED: MAGNESIUM HYDROX 2400MG/30ML ORAL SUSPENSION 30 ML CUP PO PRN (18:14)
--- NOTE | 2019-01-28 19:15 | PN ---
LINDA Progress Note Note: Psychiatry Attending's note : Discharged from [address] [place] [address]. Now transferred to [address] Mr Reed is still complaining of insomnia. Wants seroquel dose increased. Met with patient. Complaint validated. Seroquel 200 mg po hs. Ordered. Patient is in agreement with this intervention. Will follow.
[2019-01-28] MEDS: MELATONIN 5 MG TABLETS PO PRN (21:22)
[2019-01-28] MEDS: QUEtiapine FUMARATE 200 MG TABLET PO SCH (21:22)
[2019-01-28] MEDS: THIAMINE HCL 100 MG TABLET (FP) PO SCH (21:22)
[2019-01-29] MEDS: hydrOXYzine PAMOATE 50 MG CAPSULE (FP) PO PRN ×3 (01:34→17:03)
[2019-01-29] MEDS: PRENATAL VITAMINS W/ FOLIC ACID TABLET (FP) PO SCH (10:15)
[2019-01-29] MEDS: NICOTINE 21 MG/24 HOURS TOPICAL PATCH TD SCH (10:15)
[2019-01-29] MEDS: METHOCARBAMOL 500 MG TABLET PO PRN ×2 (15:36→21:20)
[2019-01-29] MEDS: THIAMINE HCL 100 MG TABLET (FP) PO SCH (21:20)
[2019-01-29] MEDS: QUEtiapine FUMARATE 200 MG TABLET PO SCH (21:20)
[2019-01-29] MEDS: cloNIDine HCL 0.1 MG TABLET PO SCH (21:20)
[2019-01-30] MEDS: NICOTINE 21 MG/24 HOURS TOPICAL PATCH TD SCH (09:53)
[2019-01-30] MEDS: cloNIDine HCL 0.1 MG TABLET PO SCH ×2 (09:53→21:18)
[2019-01-30] MEDS: PRENATAL VITAMINS W/ FOLIC ACID TABLET (FP) PO SCH (09:53)
[2019-01-30] MEDS: hydrOXYzine PAMOATE 50 MG CAPSULE (FP) PO PRN ×3 (12:29→21:18)
[2019-01-30] MEDS: METHOCARBAMOL 500 MG TABLET PO PRN (12:29)
--- NOTE | 2019-01-30 13:45 | PN ---
[facility] Progress Note Note: PT C/O W/S ADMITTED FROM [facility] ON 01/28/19. CURRENTLY ON ROBAXIN, CLONIDINE AND VISTARIL FOR W/S AND ANXIETY. PT IS INTERESTED ON SUBOXONE MAT. Vital Signs - 24 hr 01/29/19 01/30/19 01/30/19 21:00 00:30 03:30 Temperature Pulse Rate 90 Respiratory 18 18 Rate Blood Pressure 133/78 01/30/19 01/30/19 06:26 10:00 Temperature 97.8 F Pulse Rate 92 H 97 H Respiratory 16 Rate Blood Pressure 120/78 111/70 A:PROTRACTED W/S PLAN:UDS SCREEN FOR MAT ORDERED.
[2019-01-30] MEDS: THIAMINE HCL 100 MG TABLET (FP) PO SCH (21:18)
[2019-01-30] MEDS: QUEtiapine FUMARATE 200 MG TABLET PO SCH (21:18)
[2019-01-30] MEDS: MELATONIN 5 MG TABLETS PO PRN (21:18)
[2019-01-31] MEDS: hydrOXYzine PAMOATE 50 MG CAPSULE (FP) PO PRN ×3 (06:09→17:53)
[2019-01-31] MEDS: METHOCARBAMOL 500 MG TABLET PO PRN (06:10)
[2019-01-31] MEDS: NICOTINE 21 MG/24 HOURS TOPICAL PATCH TD SCH (10:04)
[2019-01-31] MEDS: cloNIDine HCL 0.1 MG TABLET PO SCH ×2 (10:04→21:25)
[2019-01-31] MEDS: PRENATAL VITAMINS W/ FOLIC ACID TABLET (FP) PO SCH (10:04)
[2019-01-31] MEDS ORDERED: ALBUTEROL SO4 0.083% IH SOL 2.5 MG/3 ML VIAL.NEB. NEB SCH (10:15)
[2019-01-31] MEDS: ALBUTEROL SO4 8 GM HFA INHALER IH PRN (10:47)
[2019-01-31] MEDS: ALBUTEROL SO4 0.083% IH SOL 2.5 MG/3 ML VIAL.NEB. NEB SCH ×2 (10:55→17:51)
[2019-01-31] MEDS: QUEtiapine FUMARATE 200 MG TABLET PO SCH (21:25)
[2019-01-31] MEDS: THIAMINE HCL 100 MG TABLET (FP) PO SCH (21:25)
[2019-01-31] MEDS: MELATONIN 5 MG TABLETS PO PRN (21:26)
[2019-02-01] MEDS: ALBUTEROL SO4 0.083% IH SOL 2.5 MG/3 ML VIAL.NEB. NEB SCH ×3 (04:32→16:40)
[2019-02-01] MEDS: NICOTINE 21 MG/24 HOURS TOPICAL PATCH TD SCH (09:40)
[2019-02-01] MEDS: cloNIDine HCL 0.1 MG TABLET PO SCH ×2 (09:40→21:18)
[2019-02-01] MEDS: PRENATAL VITAMINS W/ FOLIC ACID TABLET (FP) PO SCH (09:40)
[2019-02-01] MEDS: METHOCARBAMOL 500 MG TABLET PO PRN (09:42)
[2019-02-01] MEDS: hydrOXYzine PAMOATE 50 MG CAPSULE (FP) PO PRN ×3 (09:42→21:19)
--- NOTE | 2019-02-01 12:34 | PN ---
S Progress Note (SOAP) Subjective: patient c/o left shoulder pain, fell from a building several years ago. Requesting tramado. Client has not asked for the prescribed motrin, also has roboxin ordered. Objective: limited ROM left arm. 02/01/19 12:31 Assessment: Chronic left shoulder pain. 02/01/19 12:31 Plan: Encouraged patient to take the motrin and roboxin. If these medications do not work, will increase. Will order a lidocaine patch and cb jim at night.
[2019-02-01] MEDS: LIDOCAINE 5% TOPICAL PATCH TP SCH (14:30)
[2019-02-01] MEDS: IBUPROFEN 400 MG TABLET (FP) PO PRN (14:31)
[2019-02-01] MEDS: QUEtiapine FUMARATE 200 MG TABLET PO SCH (21:18)
[2019-02-01] MEDS: LIDOCAINE PATCH REMOVAL MC SCH (21:19)
[2019-02-01] MEDS: MELATONIN 5 MG TABLETS PO PRN (21:19)
[2019-02-01] MEDS: THIAMINE HCL 100 MG TABLET (FP) PO SCH (21:19)
[2019-02-01] MEDS: METHYL SALICYLATE/MENTHOL OINT 30 GM TUBE TP SCH (21:20)
[2019-02-02] MEDS: ALBUTEROL SO4 0.083% IH SOL 2.5 MG/3 ML VIAL.NEB. NEB SCH ×5 (04:32→21:28)
[2019-02-02] MEDS: hydrOXYzine PAMOATE 50 MG CAPSULE (FP) PO PRN ×2 (06:35→10:52)
[2019-02-02] MEDS: IBUPROFEN 400 MG TABLET (FP) PO PRN (06:35)
[2019-02-02] MEDS: ALBUTEROL SO4 8 GM HFA INHALER IH PRN ×2 (06:37→18:50)
[2019-02-02] MEDS: NICOTINE 21 MG/24 HOURS TOPICAL PATCH TD SCH (09:26)
[2019-02-02] MEDS: LIDOCAINE 5% TOPICAL PATCH TP SCH (09:26)
[2019-02-02] MEDS: PRENATAL VITAMINS W/ FOLIC ACID TABLET (FP) PO SCH (09:26)
[2019-02-02] MEDS ORDERED: METHOCARBAMOL 500 MG TABLET PO ONE (11:00)
--- NOTE | 2019-02-02 11:37 | PN ---
[facility] Progress Note Note: MET WITH PT WITH COUNSELOR TODAY. PT HAS BEEN REFERRED TO [facility] FOR CD AFTERCARE AFTER REHAB. PT HAS APPOINTMENT FOR 02/10/19. ALSO PT IS C/O PAIN TO RIGHT SHOULDER DUE TO "FALL INJURY YEARS AGO AND PAIN IS ALWAYS THERE". PT REQUETSING FOR PERCOCET AND TRAMADOL. D/W PT ON OPIOIDS AND RECOVERY. PT INFORMED ON OTHER PAIN CONTROL MODALITIES. PT WAS ALSO SEEN YESTERDAY FOR PAIN AND ON LIDOCAINE PATCH. Vital Signs - 24 hr 02/01/19 02/02/19 02/02/19 21:47 00:30 06:26 Temperature 98.7 F 97.8 F Pulse Rate 69 71 Respiratory 18 18 16 Rate Blood Pressure 112/64 108/72 EXTREMITIES:ACTIVE ROM CHRONIC PAIN,LEFT SHOULDER DRUG USE DISORDER PLAN:ROBAXIN 500 MG PO TID MOTRIN 600 MG PO Q6H PRN FOR PAIN FOLLOW UP WITH [facility] UPON DISCHARGE.
[2019-02-02] MEDS: METHOCARBAMOL 500 MG TABLET PO SCH ×2 (14:01→21:26)
--- NOTE | 2019-02-02 14:53 | PN ---
S Progress Note Note: Patient reports sleeping poorly despite taking Seroquel 200 mg/hs. Requests that Seroquel dosage be increased. Discussed hypnotic properties of Belsomra with patient and he agreed to try it
[2019-02-02] MEDS ORDERED: IBUPROFEN 400 MG TABLET (FP) PO PRN (18:14)
[2019-02-02] MEDS: QUEtiapine FUMARATE 200 MG TABLET PO SCH (21:25)
[2019-02-02] MEDS: THIAMINE HCL 100 MG TABLET (FP) PO SCH (21:26)
[2019-02-02] MEDS: SUVOREXANT 10 MG TABLET PO PRN (21:27)
[2019-02-02] MEDS: METHYL SALICYLATE/MENTHOL OINT 30 GM TUBE TP SCH (21:27)
[2019-02-02] MEDS: LIDOCAINE PATCH REMOVAL MC SCH (21:27)
[2019-02-03] MEDS: hydrOXYzine PAMOATE 50 MG CAPSULE (FP) PO PRN ×2 (06:14→13:55)
[2019-02-03] MEDS: METHOCARBAMOL 500 MG TABLET PO SCH ×3 (06:51→21:22)
[2019-02-03] MEDS: ALBUTEROL SO4 0.083% IH SOL 2.5 MG/3 ML VIAL.NEB. NEB SCH ×2 (09:02→09:40)
[2019-02-03] MEDS: PRENATAL VITAMINS W/ FOLIC ACID TABLET (FP) PO SCH (09:38)
[2019-02-03] MEDS: NICOTINE 21 MG/24 HOURS TOPICAL PATCH TD SCH (09:39)
[2019-02-03] MEDS: LIDOCAINE 5% TOPICAL PATCH TP SCH (09:39)
--- NOTE | 2019-02-03 15:17 | PN ---
S Progress Note Note: PT REQUESTING FOR HIV SCREEN TESTING. Vital Signs - 24 hr 02/03/19 02/03/19 02/03/19 00:30 03:30 06:39 Temperature 97.8 F Pulse Rate 80 Respiratory 18 18 16 Rate Blood Pressure 117/77 A:HIGH RISK PT PLAN:HIV SCREEN ORDERED FOR TOMORROW.
[2019-02-03] MEDS ORDERED: ALBUTEROL SO4 0.083% IH SOL 2.5 MG/3 ML VIAL.NEB. NEB SCH (15:22)
[2019-02-03] MEDS ORDERED: ALBUTEROL SO4 0.083% IH SOL 2.5 MG/3 ML VIAL.NEB. NEB PRN (15:23)
[2019-02-03] MEDS: LIDOCAINE PATCH REMOVAL MC SCH (21:22)
[2019-02-03] MEDS: METHYL SALICYLATE/MENTHOL OINT 30 GM TUBE TP SCH (21:22)
[2019-02-03] MEDS: QUEtiapine FUMARATE 200 MG TABLET PO SCH (21:22)
[2019-02-03] MEDS: THIAMINE HCL 100 MG TABLET (FP) PO SCH (21:22)
[2019-02-03] MEDS: SUVOREXANT 10 MG TABLET PO PRN (21:23)
[2019-02-04] MEDS: METHOCARBAMOL 500 MG TABLET PO SCH ×3 (06:37→21:22)
[2019-02-04] MEDS: ALBUTEROL SO4 8 GM HFA INHALER IH PRN ×2 (08:44→14:13)
[2019-02-04] MEDS: NICOTINE 21 MG/24 HOURS TOPICAL PATCH TD SCH (09:48)
[2019-02-04] MEDS: LIDOCAINE 5% TOPICAL PATCH TP SCH (09:48)
[2019-02-04] MEDS: PRENATAL VITAMINS W/ FOLIC ACID TABLET (FP) PO SCH (09:48)
[2019-02-04] MEDS: hydrOXYzine PAMOATE 50 MG CAPSULE (FP) PO PRN (09:49)
[2019-02-04] MEDS: QUEtiapine FUMARATE 200 MG TABLET PO SCH (21:22)
[2019-02-04] MEDS: THIAMINE HCL 100 MG TABLET (FP) PO SCH (21:22)
[2019-02-04] MEDS: LIDOCAINE PATCH REMOVAL MC SCH (21:23)
[2019-02-04] MEDS: METHYL SALICYLATE/MENTHOL OINT 30 GM TUBE TP SCH (21:23)
[2019-02-04] MEDS: SUVOREXANT 10 MG TABLET PO PRN (21:24)
[2019-02-04] MEDS: IBUPROFEN 600 MG TABLET (FP) PO PRN (21:25)
[2019-02-05] MEDS: METHOCARBAMOL 500 MG TABLET PO SCH ×3 (06:44→21:17)
[2019-02-05] MEDS: hydrOXYzine PAMOATE 50 MG CAPSULE (FP) PO PRN ×2 (06:46→10:04)
[2019-02-05] MEDS: IBUPROFEN 600 MG TABLET (FP) PO PRN (10:03)
[2019-02-05] MEDS: PRENATAL VITAMINS W/ FOLIC ACID TABLET (FP) PO SCH (10:03)
[2019-02-05] MEDS: NICOTINE 21 MG/24 HOURS TOPICAL PATCH TD SCH (10:03)
[2019-02-05] MEDS: LIDOCAINE 5% TOPICAL PATCH TP SCH (10:04)
[2019-02-05] MEDS: ALBUTEROL SO4 8 GM HFA INHALER IH PRN (10:05)
[2019-02-05] MEDS: THIAMINE HCL 100 MG TABLET (FP) PO SCH (21:16)
[2019-02-05] MEDS: QUEtiapine FUMARATE 200 MG TABLET PO SCH (21:16)
[2019-02-05] MEDS: METHYL SALICYLATE/MENTHOL OINT 30 GM TUBE TP SCH (21:17)
[2019-02-05] MEDS: LIDOCAINE PATCH REMOVAL MC SCH (21:17)
[2019-02-05] MEDS: SUVOREXANT 10 MG TABLET PO PRN (21:18)
[2019-02-06 06:48] VITALS: BP 133/81; PULSE 81; TEMP 98.1
[2019-02-06] MEDS: METHOCARBAMOL 500 MG TABLET PO SCH (07:18)
[2019-02-06] MEDS: PRENATAL VITAMINS W/ FOLIC ACID TABLET (FP) PO SCH (09:59)
[2019-02-06] MEDS: NICOTINE 21 MG/24 HOURS TOPICAL PATCH TD SCH (09:59)
[2019-02-06] MEDS: LIDOCAINE 5% TOPICAL PATCH TP SCH (09:59)
--- NOTE | 2019-02-06 14:16 | PN ---
S Progress Note (SOAP) Subjective: PT COMPLETED REHAB AND HAS BEEN REFERRED TO [facility] [address], [place] FOR CD AFTERCARE. PT REPORTS HE USES [facility] ON [address] [facility] FOR PRIMARY CARE AND WILL BE RETURNING THERE FOR MEDICAL CARE. PT IS ALERT O X 3. Objective: 02/06/19 14:23 Vital Signs - 24 hr 02/06/19 02/06/19 02/06/19 00:30 03:30 06:48 Temperature 98.1 F Pulse Rate 81 Respiratory 18 18 16 Rate Blood Pressure 133/81 Laboratory Tests 02/05/19 07:30 HIV 1&2 Antibody Screen Negative HIV P24 Antigen Negative Home Medications Medication Instructions Recorded Seroquel 200 mg PO HS 02/01/19 Assessment: 02/06/19 14:24 NAD MEDICALLY STABLE Plan: FOLLOW UP WITH CD AFTERCARE RECOMMENDATIONS FOLLOW UP WITH [facility] WITHIN 1-2 WEEKS AFTER DISCHARGE FOR MEDICAL MANAGEMENT.
== END 2019-02-06 10:15 | disposition home or self-care (01) | DRG 772 ==
LOC: YASAS 17:42 → Y5N 17:44
PROVIDERS: ADMIT Neuromusculoskeletal Medicine & OMM; ATTEND Neuromusculoskeletal Medicine & OMM
PROC: HZ42ZZZ Group Counseling for Substance Abuse Treatment, Cognitive-Behavioral (ICD-10-PCS; principal; 2019-01-28)
DX: F11.20 Opioid dependence, uncomplicated (principal); F10.20 Alcohol dependence, uncomplicated; F17.210 Nicotine dependence, cigarettes, uncomplicated; H54.8 Legal blindness, as defined in USA; E70.319 Ocular albinism, unspecified; B18.2 Chronic viral hepatitis C; M25.512 Pain in left shoulder; G89.29 Other chronic pain
CPT/HCPCS: 36415; 87389; 94640; J0735